=== PATIENT | female | born 1935 | race Caucasian/White ===

== ENCOUNTER 2020-07-05 14:51 | Emergency (ER) | payer OTHER ==
[~2020-07-05] VITALS: Ht 172.7 cm; Wt 83.9 kg
[2020-07-05 15:03] VITALS: BP 126/78
--- NOTE | 2020-07-05 15:09 | NUR ---
85 Y/O FEMALE BIBA FROM HOME S/P MECHANICAL FALL AT HOME, PATIENT STATES SHE FELL BACK AND HIT HER HEAD BUT DID NOT LOSE CONSCIOUSNESS. NO DEFORMITY OR BLEEDING NOTED TO SITE. PT IS ON WARFARIN 5MG. AAOX4, AMBULATORY WITH WALKER. PERRLA 3MM. VSS. NO DIZZINESS OR WEAKNESS AT THIS TIME. NO DISTRESS NOTED AT THIS TIME.
--- NOTE | 2020-07-05 17:03 | NUR ---
[facility] 15 AT THIS TIME, CONTACTED DAUGHTER ZULEMA IN REGARDS TO UPDATE IN PT STATUS. VSS.
[2020-07-05] MEDS ORDERED: levETIRAcetam 1,000 MG in NACL 0.9% 100 ML IV ONE (17:05)
[2020-07-05] MEDS ORDERED: PROTHROMBIN COMPLEX HUMAN 500 UNITS KIT IV ONE (17:10)
[2020-07-05] MEDS ORDERED: levETIRAcetam 100 MG/ML VIAL IV ONE (17:19)
[2020-07-05] MEDS ORDERED: MORPHINE SULFATE 4 MG/ML SYR IVP ONE (17:30)
[2020-07-05] MEDS ORDERED: ONDANSETRON 4 MG/2 ML VIAL IVP ONE (17:30)
[2020-07-05 17:52] LABS: BASOPHILS # (AUTO) 0.2 K/uL (0.00-0.22); BASOPHILS % (AUTO) 1.5 % (0.0-2.0); EOSINOPHILS # (AUTO) 0.1 K/uL (0-0.4); EOSINOPHILS % (AUTO) 0.4 % (0.0-4.0); HEMATOCRIT 42.7 % (36-48); HEMOGLOBIN 13.7 g/dL (12.0-16.0); LYMPHOCYTES # (AUTO) 0.5 K/uL (2.5-16.5); LYMPHOCYTES % (AUTO) 3.3 % (20.5-51.1); MEAN CORPUSCULAR HEMOGLOBIN 34 pg (27-31); MEAN CORPUSCULAR HGB CONC 32 g/dL (33-37); MEAN CORPUSCULAR VOLUME 106.2 fL (80-94); MONOCYTES # (AUTO) 0.2 K/uL (0.8-1.0); MONOCYTES % (AUTO) 1.7 % (1.7-9.3); NEUTROPHILS # (AUTO) 13.4 K/uL (1.8-7.7); NEUTROPHILS % (AUTO) 93.1 % (42.2-75.2); PLATELET COUNT (AUTO) 260 K/uL (140-450); RED BLOOD CELL COUNT(AUTO) 4.02 MIL/uL (4.20-5.40); RED CELL DISTRIBUTION WIDTH 18.9 % (11.6-13.7); WHITE BLOOD COUNT (AUTO) 14.4 K/uL (4.8-10.8)
[2020-07-05] MEDS: LABETALOL 100 MG/20 ML VIAL IVP PRN ×2 (17:57→19:07)
[2020-07-05 18:30] LABS: PROTHROMBIN TIME 29.6 secs (10.8-13.4)
[2020-07-05 18:37] LABS: ALBUMIN 3.7 g/dL (3.4-5.0); ASPARTATE AMINOTRANSFERASE 25 U/L (15-37); CARBON DIOXIDE 19.8 mmol/L (21-32); CHLORIDE 104 mmol/L (98-107); GLUCOSE 188 mg/dL (74-106); POTASSIUM 4.8 mmol/L (3.5-5.1); SODIUM SERUM 135 mmol/L (136-145); TOTAL BILIRUBIN 0.8 mg/dL (0.0-1.0); UREA NITROGEN, BLOOD 58 mg/dL (7-18)
--- NOTE | 2020-07-05 18:45 | NUR ---
CERVICAL COLLAR PLACED ON PT AT THIS TIME Addendum: 07/05/20 at 1846 by [email or web address] CERVICAL COLLAR PLACED ON PT AT THIS TIME BY TYRON AND NAFISA QUIÑONES, USING CERVICAL STABILIZATION AND LOG ROLLING TECHNIQUE
--- NOTE | 2020-07-05 19:50 | NUR ---
RECIVED REPORT FROM ALTON KONG. CONTINUATION OF CARE.
--- NOTE | 2020-07-05 20:34 | NUR ---
Patient to be transferred to [facility] ER. Is being transferred due to MULTIFOCAL FX OF THE C1 ATLAS. Receiving facility has accepting physician and available space. ER physician has signed transfer form. Patient has agreed to transfer and signed form. Patient belongings inventoried and will be sent with patient. Copy of nursing notes, lab reports, EKG, Physicians Orders and X-rays to be sent with patient. Report called to LAURA KONG at receiving facility. [facility] ambulance service has been called for transfer. ETA is 60 MIN.
--- NOTE | 2020-07-05 20:57 | NUR ---
[facility] TRANSPORT AT BEDSIDE
[2020-07-05 21:19] VITALS: BP 127/81
--- NOTE | 2020-07-05 21:19 | NUR ---
PT TAKEN BY [facility] TO [facility]
--- NOTE | 2020-07-06 16:59 | NUR ---
LATE ENTRY -- YARON ENDED 07/04/20 AT 1837, AND MINDY ENDED 1715
== END 2020-07-05 21:19 | disposition designated cancer center or children's hospital (05) ==
LOC: MED 14:51
DX: S12.090A Other displaced fracture of first cervical vertebra, initial encounter for closed fracture (principal); W19.XXXA Unspecified fall, initial encounter; Y93.89 Activity, other specified; Y92.89 Other specified places as the place of occurrence of the external cause; Y99.8 Other external cause status
CPT/HCPCS: 36415; 70450; 72125; 80053; 85025; 85610; 85730; 96365; 96368; 96375; 99285; C9132; J1953; J2270; J2405; J3490